=== PATIENT | female | born 1965 | race Caucasian/White ===

== ENCOUNTER → 2016-06-12 | Outpatient (CLI) | payer BC ==
[~2016-06-12] MED LIST: BUDEPRION XL150 MG PO; SEPTRA DS 8001 TAB PO; SYNTHROID0.075 MG/T PO; ZANTAC 150MG T150 MG PO; ZYLOPRIM 100MG100 MG PO; ZYRTEC 10MG10 MG PO
== END ==
LOC: MC.RAD 10:00
DX: L29.8 Other pruritus (principal)

== ENCOUNTER → 2018-12-02 | Outpatient (CLI) | payer BC | LOC: MC.RAD 10:13 | DX: Z12.31 Encounter for screening mammogram for malignant neoplasm of breast (principal) ==

== ENCOUNTER 2019-01-17 09:07 | Day surgery (SDC) | payer BC ==
[2019-01-17] VITALS (8 sets, daily range): BP systolic 92–154; BP diastolic 57–93; PULSE 75–86; TEMP 98–98.4
[~2019-01-17] VITALS: Ht 167.6 cm; Wt 125.1 kg
[2019-01-17] MEDS ORDERED: MELATIN 3 MG-11 TAB PO (09:47)
[2019-01-17] MEDS ORDERED: ALIGN10.5 MG PO (09:47)
[2019-01-17] MEDS ORDERED: ALEVE 220MG220 MG PO (09:48)
[2019-01-17] MEDS ORDERED: PROTONIX 40MG T40 MG PO (09:49)
[2019-01-17] MEDS ORDERED: CLARISPRAY9.9 ML NS (09:49)
[2019-01-17] MEDS ORDERED: COLACE 100100 MG/CAP PO (09:50)
--- NOTE | 2019-01-17 11:16 | NUR ---
PATIENT TRANSPORTED PER CART TO B[facility] ACCOMPANIED BY ENDO STAFF. PATIENT AMBULATES WITH 1 ASSIST FROM CART TO CHAIR WITH STEADY GAIT. MONITORS APPLIED. PATIENT DENIES DISCOMFORT AND NAUSEA. VSS.
--- NOTE | 2019-01-17 11:20 | NUR ---
VSS. PATIENT GIVEN MUFFIN AND PEPSI. RESTING IN CHAIR VISITING WITH FAMILY.
--- NOTE | 2019-01-17 11:46 | NUR ---
VSS. PATIENT TOLERATED FOOD AND DRINK WITHOUT PROBLEMS. PATIENT DENIES DISCOMFORT.
--- NOTE | 2019-01-17 11:55 | NUR ---
VSS. PATIENT WAITING TO SPEAK WITH DOCTOR. DISCHARGE PACKET GIVEN TO PATIENT. DISCHARGE INSTRUCTIONS VERBALLY GIVEN AND PATIENT VOICED UNDERSTANDING. IV SITE DC'D INTACT AND PRESSURE APPLIED.
--- NOTE | 2019-01-17 12:30 | NUR ---
Patient feels ready to go home. Discharge instructions reviewed with patient. All questions answered. Patient to get dressed at this time.
--- NOTE | 2019-01-17 12:40 | NUR ---
Patient brought down to lobby via wheel chair. To be driven home by Karen.
== END 2019-01-17 12:40 | disposition home or self-care (01) ==
LOC: SDCO 09:07
DX: K21.9 Gastro-esophageal reflux disease without esophagitis (principal); R19.7 Diarrhea, unspecified; K59.00 Constipation, unspecified; Z90.710 Acquired absence of both cervix and uterus; G47.33 Obstructive sleep apnea (adult) (pediatric); M19.90 Unspecified osteoarthritis, unspecified site
CPT/HCPCS: J2704

== ENCOUNTER 2019-03-26 08:30 | Outpatient (RCR) | payer BC ==
[~2019-03-26 08:30] MED LIST changes: +ALEVE 220MG220 MG PO; +ALIGN10.5 MG PO; +CLARISPRAY9.9 ML NS; +COLACE 100100 MG/CAP PO; +MELATIN 3 MG-11 TAB PO; +PROTONIX 40MG T40 MG PO
== END 2019-04-01 17:03 | disposition home or self-care (01) ==
LOC: WSPT 08:30
DX: S96.011A Strain of muscle and tendon of long flexor muscle of toe at ankle and foot level, right foot, initial encounter (principal)

== ENCOUNTER → 2021-03-04 | Outpatient (CLI) | payer BC | LOC: MC.RAD 13:00 | DX: Z12.31 Encounter for screening mammogram for malignant neoplasm of breast (principal) ==

== ENCOUNTER → 2023-12-26 | Outpatient (CLI) | payer BC | LOC: MC.RAD 09:11 | DX: Z12.31 Encounter for screening mammogram for malignant neoplasm of breast (principal) ==